=== PATIENT | female | born 2000 | race Caucasian/White ===

== ENCOUNTER 2020-09-24 18:13 | Emergency (ER) | payer MEDICAID ==
[~2020-09-24] VITALS: Ht 147.3 cm; Wt 63.5 kg
[2020-09-24 18:20] VITALS: BP 113/63
[2020-09-24] MEDS ORDERED: DEXAMETHASONE 10 MG/ML VIAL IM ONE (18:40)
--- NOTE | 2020-09-24 19:20 | NUR ---
Report received from GAY Zee for continuation of care.
--- NOTE | 2020-09-24 19:30 | NUR ---
Pt states she is feeling much better at this time.
[2020-09-24 19:31] VITALS: BP 113/63
--- NOTE | 2020-09-24 19:31 | NUR ---
Patient discharged with v/s stable. Written and verbal after care instructions given and explained. Patient alert, oriented and verbalized understanding of instructions. Ambulatory with steady gait. All questions addressed prior to discharge. ID band removed. Patient advised to follow up with PMD. Rx of Benadryl & Famotidine given. Patient educated on indication of medication including possible reaction and side effects. Opportunity to ask questions provided and answered.
== END 2020-09-24 19:31 | disposition home or self-care (01) ==
LOC: MED 18:13
DX: T78.3XXA Angioneurotic edema, initial encounter (principal); X58.XXXA Exposure to other specified factors, initial encounter
CPT/HCPCS: 96372; 99283; J1100; Q0163

== ENCOUNTER 2022-07-04 17:01 | Emergency (ER) | payer MEDICAID, OTHER ==
[~2022-07-04] VITALS: Ht 147.3 cm; Wt 67.6 kg
[2022-07-04] MEDS ORDERED: IBUP-1842 PO (19:14)
--- NOTE | 2022-07-04 19:29 | NUR ---
PT CALLED FOR D/C, NO ANSWER. PT LEFT WITHOUT PAPERWORK. Patient discharged with v/s stable. Written and verbal after care instructions given and explained. Patient alert, oriented and verbalized understanding of instructions. Ambulatory with steady gait. All questions addressed prior to discharge. ID band removed. Patient advised to follow up with PMD. Rx of IBUPROFEN given. Patient educated on indication of medication including possible reaction and side effects. Opportunity to ask questions provided and answered.
== END 2022-07-04 19:29 | disposition home or self-care (01) ==
LOC: MED 17:01
DX: S69.92XA Unspecified injury of left wrist, hand and finger(s), initial encounter (principal); X58.XXXA Exposure to other specified factors, initial encounter; Y93.89 Activity, other specified; Y92.89 Other specified places as the place of occurrence of the external cause; Y99.8 Other external cause status
CPT/HCPCS: 73140; 99283

== ENCOUNTER 2023-05-20 17:54 | Emergency (ER) | payer MEDICAID, OTHER ==
[~2023-05-20] VITALS: Ht 147.3 cm; Wt 69.4 kg
[~2023-05-20 17:54] MED LIST: IBUP-1842 PO
[2023-05-20 18:09] VITALS: BP 127/73; PULSE 77; RESP 18; TEMP 97.9; O2SAT 99
[2023-05-20] MEDS ORDERED: FAMOTIDINE 20 MG/2 ML VIAL IVP ONE (19:05)
[2023-05-20] MEDS ORDERED: diphenhydrAMINE 50 MG/ML VIAL IVP ONE ×2 (19:05→21:20)
[2023-05-20] MEDS ORDERED: METOCLOPRAMIDE 10 MG/2 ML INJ VIAL IVP ONE (19:05)
[2023-05-20] MEDS ORDERED: NACL 0.9% 1,000 ML IV ONE (19:05)
[2023-05-20 19:28] LABS: BASOPHILS % (AUTO) 0.3 % (0.0-2.0); EOSINOPHILS # (AUTO) 0.2 K/uL (0-0.4); EOSINOPHILS % (AUTO) 1.4 % (0.0-4.0); HEMATOCRIT 42.3 % (36-48); HEMOGLOBIN 14.4 g/dL (12.0-16.0); LYMPHOCYTES # (AUTO) 2.5 K/uL (2.5-16.5); LYMPHOCYTES % (AUTO) 17.3 % (20.5-51.1); MEAN CORPUSCULAR HEMOGLOBIN 29 pg (27-31); MEAN CORPUSCULAR HGB CONC 34 g/dL (33-37); MEAN CORPUSCULAR VOLUME 86.5 fL (80-94); MONOCYTES # (AUTO) 0.9 K/uL (0.8-1.0); MONOCYTES % (AUTO) 6.6 % (1.7-9.3); NEUTROPHILS # (AUTO) 10.5 K/uL (1.8-7.7); NEUTROPHILS % (AUTO) 74.4 % (42.2-75.2); PLATELET COUNT (AUTO) 251 K/uL (140-450); RED BLOOD CELL COUNT(AUTO) 4.89 MIL/uL (4.20-5.40); RED CELL DISTRIBUTION WIDTH 12.9 % (11.6-13.7); WHITE BLOOD COUNT (AUTO) 14.2 K/uL (4.8-10.8)
[2023-05-20 19:47] LABS: ALBUMIN 4.3 g/dL (3.4-5.0); CALCIUM 9.6 mg/dL (8.5-10.1); CREATININE 0.9 mg/dL (0.6-1.3); TOTAL BILIRUBIN 0.3 mg/dL (0.0-1.0); TOTAL PROTEIN, SERUM 8.6 g/dL (6.4-8.2)
[2023-05-20] MEDS ORDERED: diphenhydrAMINE 50 MG/ML VIAL ONE (20:59)
[2023-05-20] MEDS ORDERED: METOCLOPRAMIDE 10 MG/2 ML INJ VIAL ONE (20:59)
[2023-05-20] MEDS ORDERED: FAMOTIDINE 20 MG/2 ML VIAL ONE (21:00)
[2023-05-20 21:15] LABS: APPEARANCE,URINE CLEAR (CLEAR); BILIRUBIN,URINE NEGATIVE (NEGATIVE); BLOOD, URINE 1+ (NEGATIVE); COLOR,URINE YELLOW (YELLOW); LEUKOCYTE ESTERASE ,URINE NEGATIVE (NEGATIVE); NITRITE, URINE NEGATIVE (NEGATIVE); PROTEIN,URINE NEGATIVE (NEGATIVE); UGLUCOSE NEGATIVE (NEGATIVE); UROBILINOGEN,URINE 0.2 EU/dL (0.2 - 1)
[2023-05-20] MEDS ORDERED: LORazepam 2 MG/ML VIAL IVP ONE (21:20)
[2023-05-20] MEDS ORDERED: KETOROLAC 30 MG/ML VIAL IVP ONE (21:25)
[2023-05-20 21:39] LABS: BACTERIA,URINE FEW /HPF (None Seen); RBC,URINE 11-20 (MOD) /HPF (0-5); SQUAMOUS EPITHELIAL CELL,UR 0-3 (FEW) /LPF (0-3 (FEW))
[2023-05-21] MEDS ORDERED: ACET-2619 PO (03:11)
[2023-05-21] MEDS ORDERED: CEPH-588 PO (03:11)
[2023-05-21] MEDS ORDERED: PYR100 PO (03:11)
== END 2023-05-21 04:12 | disposition home or self-care (01) ==
LOC: MED 17:54
DX: R10.84 Generalized abdominal pain (principal); F12.90 Cannabis use, unspecified, uncomplicated; Z79.1 Long term (current) use of non-steroidal anti-inflammatories (NSAID)
CPT/HCPCS: 36415; 74177; 80053; 81001; 81025; 83690; 85025; 87086; 96361; 96374; 96375; 96376; 99285; J1200; J1885; J2060; J2765; J3490; J7030; Q9967

== ENCOUNTER 2024-01-29 17:32 | Emergency (ER) | payer SELFPAY ==
[~2024-01-29] VITALS: Ht 147.3 cm; Wt 65.8 kg
[~2024-01-29 17:32] MED LIST changes: +ACET-2619 PO; +CEPH-588 PO; +PYR100 PO
[2024-01-29 17:37] VITALS: BP 103/70; PULSE 61; RESP 16; TEMP 98.3; O2SAT 99
[2024-01-29] MEDS ORDERED: IBUP-2213 PO (20:02)
[2024-01-29] MEDS: IBUPROFEN 600 MG TAB PO ONE (20:10)
[2024-01-29 20:29] VITALS: BP 103/70; PULSE 61; RESP 16; TEMP 98.3; O2SAT 99
== END 2024-01-29 20:29 | disposition home or self-care (01) ==
LOC: MED 17:32
DX: S62.346A Nondisplaced fracture of base of fifth metacarpal bone, right hand, initial encounter for closed fracture (principal); W18.30XA Fall on same level, unspecified, initial encounter; Y93.89 Activity, other specified; Y92.89 Other specified places as the place of occurrence of the external cause; Y99.8 Other external cause status
CPT/HCPCS: 73110; 73130; 99284

== ENCOUNTER 2024-02-03 09:56 | Emergency (ER) | payer SELFPAY ==
[~2024-02-03] VITALS: Ht 148.6 cm; Wt 69.1 kg
[~2024-02-03 09:56] MED LIST changes: +IBUP-2213 PO
[2024-02-03 10:21] VITALS: BP 126/83; PULSE 64; RESP 18; TEMP 98.2; O2SAT 99
== END 2024-02-03 11:39 | disposition home or self-care (01) ==
LOC: MED 09:56
DX: S62.396A Other fracture of fifth metacarpal bone, right hand, initial encounter for closed fracture (principal); Z79.899 Other long term (current) drug therapy; X58.XXXA Exposure to other specified factors, initial encounter; Y93.89 Activity, other specified; Y92.89 Other specified places as the place of occurrence of the external cause; Y99.8 Other external cause status
CPT/HCPCS: 99281